=== PATIENT | female | born 1975 | race Caucasian/White ===

== ENCOUNTER 2019-01-03 20:36 | Emergency (ER) | payer SELFPAY ==
--- NOTE | 2019-01-03 20:58 | ERPHSYRPT ---
- History of Present Illness Time Seen by Provider: 01/03/19 20:57 Source: patient, family Exam Limitations: no limitations Patient Subjective Stated Complaint: pt states she was working on a cup and accidentally stabberherself in the lt palm with an exacto knife. states she has itp and has not been able to get it to stop bleeding Triage Nursing Assessment: pt alert and oriented, answers questions approp. pt ambulatory wikth steady gait noted. respirations nonlabored with lungs cta. approx 1cm laceration noted to middle palm with minimal bleeding noted. radial pulse and cap refill wnl. Physician History: 43 y/o right handed white female presents with a superficial laceration to palm of left hand. was bleeding a sig amt. pts tetanus is not utd. 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 Timing/Duration: today Quality: painful Severity: mild Location: hands (left) Possible Causes: other (exacto knife) Associated Symptoms: denies symptoms Allergies/Adverse Reactions: No Known Drug Allergies Allergy (Verified 01/03/19 20:48) Home Medications: Duloxetine HCl [Cymbalta] 30 mg PO HS 09/17/15 [History] Duloxetine HCl [Cymbalta] 60 mg PO HS 09/17/15 [History] Zolpidem Tartrate [Ambien] 10 mg PO HS 09/17/15 [History] Hx Tetanus, Diphtheria Vaccination/Date Given: No Hx Influenza Vaccination/Date Given: No Hx Pneumococcal Vaccination/Date Given: No Immunizations Up to Date: No - Review of Systems Constitutional: Fever Eyes: No Symptoms Ears, Nose, & Throat: No Symptoms Respiratory: Cough, No Dyspnea, No Stridor, No Wheezing Cardiac: No Symptoms Abdominal/Gastrointestinal: No Symptoms Genitourinary Symptoms: No Symptoms Musculoskeletal: No Symptoms Skin: Other (laceration left hand) Neurological: No Symptoms Psychological: No Symptoms Endocrine: No Symptoms Hematologic/Lymphatic: No Symptoms Immunological/Allergic: No Symptoms All Other Systems: Reviewed and Negative - Past Medical History Pertinent Past Medical History: Yes Neurological History: No Pertinent History ENT History: No Pertinent History Cardiac History: No Pertinent History Respiratory History: No Pertinent History Endocrine Medical History: No Pertinent History Musculoskeletal History: Fibromyalgia, Osteoarthritis GI Medical History: No Pertinent History History: No Pertinent History Psycho-Social History: Depression Other Medical History: LOW PLATLET COUNT. ITP - Past Surgical History Past Surgical History: Yes Neuro Surgical History: No Pertinent History Cardiac: No Pertinent History Respiratory: No Pertinent History Gastrointestinal: Cholecystectomy Genitourinary: No Pertinent History Musculoskeletal: No Pertinent History Female Surgical History: Hysterectomy - Social History Smoking Status: Current some day smoker How long have you smoked: 10 Exposure to second hand smoke: No Alcohol Use: None Drug Use: none Patient Lives Alone: No Significant Family History: no pertinent family hx - Female History Hx Last Menstrual Period: hyster 2016 Hx Now: No - Nursing Vital Signs Nursing Vital Signs: Initial Vital Signs Temperature 98.7 F 01/03/19 20:38 Pulse Rate 93 H 01/03/19 20:38 Respiratory Rate 18 01/03/19 20:38 Blood Pressure 138/78 01/03/19 20:38 O2 Sat by Pulse Oximetry 99 01/03/19 20:38 Pain Scale Pain Intensity 8 - Physical Exam General Appearance: no apparent distress, alert, anxiety Eye Exam: PERRL/EOMI, eyes nml inspection Ears, Nose, Throat Exam: normal ENT inspection, moist mucous membranes Neck Exam: normal inspection, non-tender, supple, full range of motion Respiratory Exam: airway intact, No chest tenderness, No respiratory distress Cardiovascular Exam: regular rate/rhythm Gastrointestinal/Abdomen Exam: No tenderness Pelvic Exam: not done Rectal Exam: not done Back Exam: normal inspection, normal range of motion, No CVA tenderness, No vertebral tenderness Extremity Exam: lacerations (0.5cm palmar aspect left hand, nv intact, tendon function intact), tenderness Neurologic Exam: alert, oriented x 3, cooperative, 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 Skin Exam: normal color, warm, laceration (see above) Lymphatic Exam: No adenopathy SpO2 Interpretation: normal SpO2: 99 O2 Delivery: Room Air Procedures - Laceration/Wound Repair Left Hand Wound Location: Left, hand (palmar aspect) Wound Length (cm): 0.5 Wound's Depth, Shape: superficial Wound Explored: clean Irrigated: Yes Hibiclens Prep: Yes Wound Repaired With: Steri-strips, Dermabond Progress: 01/03/19 22:50 pt sherrie well no complications - Course Nursing assessment & vital signs reviewed: Yes Ordered Tests: Active Orders 24 hr Category Date Time Status Wound Care STAT Care 01/03/19 22:17 Active Medication Summary Discontinued Medications Generic Name Dose Route Start Last Admin Trade Name Jeanette PRN Reason Stop Dose Admin Acetaminophen 650 mg 01/03/19 21:55 01/03/19 22:05 Tylenol 325 Mg PO 01/03/19 21:56 650 mg STAT STA Administration Acetaminophen Confirm 01/03/19 21:59 Tylenol 325 Mg Administered 01/03/19 22:00 Dose 650 mg .ROUTE .STK-MED ONE Diphtheria/Tetanus/Acell Pertussis 0.5 ml 01/03/19 21:56 01/03/19 22:05 Adacel Vial IM 01/03/19 21:57 0.5 ml .ONCE ONE Administration Diphtheria/Tetanus/Acell Pertussis Confirm 01/03/19 22:00 Adacel Vial Administered 01/03/19 22:01 Dose 0.5 ml IM .STK-MED ONE Ibuprofen 600 mg 01/03/19 21:55 01/03/19 22:10 Motrin 600 Mg PO 01/03/19 21:56 Not Given STAT ONE Ibuprofen Confirm 01/03/19 21:59 Motrin 600 Mg Administered 01/03/19 22:00 Dose 600 mg .ROUTE .STK-MED ONE - Progress Progress: improved Counseled pt/family regarding: diagnosis - Departure Departure Disposition: Home Clinical Impression: Laceration of left hand Condition: Stable Critical Care Time: No Referrals: JOVANI ESQUIVEL NP [Primary Care Provider] - Additional Instructions: keep dry for 24 hours. after 24 hours may wash daily. leave steristrips in place until they fall off. tylenol for pain
[2019-01-03] MEDS ORDERED: TYLENOL 325 MG PO STA (21:55)
[2019-01-03] MEDS ORDERED: MOTRIN 600 MG PO ONE (21:55)
[2019-01-03] MEDS ORDERED: Adacel Vial IM ONE ×2 (21:56→22:00)
[2019-01-03] MEDS ORDERED: MOTRIN 600 MG ONE (21:59)
[2019-01-03] MEDS ORDERED: TYLENOL 325 MG ONE (21:59)
[2019-01-03 22:58] VITALS: BP 116/81; PULSE 76; O2SAT 98
== END 2019-01-03 22:58 | disposition home or self-care (01) ==
LOC: ED 20:36
DX: S61.412A Laceration without foreign body of left hand, initial encounter (principal); W26.0XXA Contact with knife, initial encounter
CPT/HCPCS: 12001; 90471; 90715; 99283; A9270-GY

== ENCOUNTER 2020-04-22 16:09 | Emergency (ER) | payer OTHER ==
[2020-04-22 16:21] VITALS: BP 156/92; PULSE 92; O2SAT 98
--- NOTE | 2020-04-22 17:06 | ERPHSYRPT ---
- History of Present Illness Source: patient Patient Subjective Stated Complaint: Pt has TMJ and woke up this morning with her jaw out of place, pt has tried to manipulate it back with no success and is having extreme jaw pain to the left side, pt is unable to take NSAIDS due to having ITP Triage Nursing Assessment: Pt was brought to the ER by her , hypertensive, pain to left jaw, swollen and looks displaced, pain 9/10, no other issues at this time Physician History: 45 yo wf w chronic L TMJ pain states that her L TMJ dislocated this AM. Pain is 9/10 and worse w mandibular excursion. Trauma is denied. Timing/Duration: abrupt onset Severity: severe Prearrival Treatment: no prearrival treatment Modifying Factors: Worsens With: activity Associated Symptoms: jaw pain Allergies/Adverse Reactions: No Known Drug Allergies Allergy (Verified 04/22/20 16:21) Home Medications: Duloxetine HCl [Cymbalta] 30 mg PO HS 09/17/15 [History] Duloxetine HCl [Cymbalta] 60 mg PO HS 09/17/15 [History] Zolpidem Tartrate [Ambien] 10 mg PO HS 09/17/15 [History] Carbamazepine 200 mg [Tegretol 200 MG] 200 mg PO HS 04/22/20 [History] Hx Tetanus, Diphtheria Vaccination/Date Given: No Hx Influenza Vaccination/Date Given: No Hx Pneumococcal Vaccination/Date Given: No Travel Risk - International Travel Have you traveled outside of the country in past 3 weeks: No - Coronavirus Screening Are you exhibiting any of the following symptoms?: No Close contact with a COVID-19 positive Pt in past 14-21 Days: No - Review of Systems Constitutional: No Symptoms Eyes: No Symptoms Respiratory: No Symptoms Cardiac: No Symptoms Abdominal/Gastrointestinal: No Symptoms Genitourinary Symptoms: No Symptoms Musculoskeletal: No Symptoms Skin: No Symptoms Neurological: No Symptoms Psychological: No Symptoms Endocrine: No Symptoms Hematologic/Lymphatic: No Symptoms Immunological/Allergic: No Symptoms - Past Medical History Pertinent Past Medical History: Yes Neurological History: No Pertinent History ENT History: No Pertinent History Cardiac History: No Pertinent History Respiratory History: No Pertinent History Endocrine Medical History: No Pertinent History Musculoskeletal History: Fibromyalgia, Osteoarthritis GI Medical History: No Pertinent History History: No Pertinent History Psycho-Social History: Depression Other Medical History: LOW PLATLET COUNT. ITP - Past Surgical History Past Surgical History: Yes Neuro Surgical History: No Pertinent History Cardiac: No Pertinent History Respiratory: No Pertinent History Gastrointestinal: Cholecystectomy Genitourinary: No Pertinent History Musculoskeletal: No Pertinent History Female Surgical History: Hysterectomy - Social History Smoking Status: Former smoker How long have you smoked: 10 Exposure to second hand smoke: No Alcohol Use: None Drug Use: none Patient Lives Alone: No Significant Family History: no pertinent family hx - Female History Hx Now: No (hysterectomy) - Nursing Vital Signs Nursing Vital Signs: Initial Vital Signs Temperature 97.9 F 04/22/20 16:14 Pulse Rate 92 H 04/22/20 16:14 Blood Pressure 156/92 04/22/20 16:14 O2 Sat by Pulse Oximetry 98 04/22/20 16:14 Pain Scale Pain Intensity 9 - Physical Exam Eye Exam: bilateral eye: normal inspection, PERRL, EOMI Ear Exam: bilateral ear: auricle normal, canal normal, TM normal Nasal Exam: normal inspection Throat Exam: pharynx normal, trismus (L TMJ ttp wo obvious dislocation), No dental tenderness Neck Exam: normal inspection, non-tender, supple, full range of motion, trachea midline, No JVD, No limited range of motion, No lymphadenopathy (R), No lymphadenopathy (L), No stiff neck Cardiovascular/Respiratory Exam: normal breath sounds, regular rate/rhythm, heart sounds normal, no respiratory distress Neurologic Exam: alert, oriented x 3, cooperative, 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 tested, normal mood/affect, nml cerebellar function, nml station & gait, sensation nml, No motor deficits, No sensory deficit Skin Exam: normal color, warm, dry, No rash SpO2 Interpretation: normal SpO2: 98 O2 Delivery: Room Air - Course Nursing assessment & vital signs reviewed: Yes - CT Exams Maxillofacial Bones CT Interpretation: Tele-radiologist Report (Nothing acute) Ordered Tests: Active Orders 24 hr Category Date Time Status FACIAL BONES WO CONTRAST [CT] Stat Exams 04/22/20 16:37 Completed Medication Summary Discontinued Medications Generic Name Dose Route Start Last Admin Trade Name Freq PRN Reason Stop Dose Admin Orphenadrine Citrate 60 mg 04/22/20 17:09 04/22/20 17:12 Norflex 60 Mg/2 Ml IM 04/22/20 17:10 60 mg STAT ONE Administration Orphenadrine Citrate Confirm 04/22/20 17:11 Norflex 60 Mg/2 Ml Administered 04/22/20 17:12 Dose 60 mg .ROUTE .STK-MED ONE - Progress Progress: improved Progress Note: 04/22/20 17:11 60mg IM Norflex Counseled pt/family regarding: need for follow-up, rad results - Departure Departure Disposition: Home Clinical Impression: TMJ arthralgia Condition: Stable Critical Care Time: No Referrals: JOVANI ESQUIVEL NP [Primary Care Provider] - Instructions: Temporomandibular Joint (TMJ) Disorders (DC) Additional Instructions: Follow up with your dentist in AM Norflex as needed for pain Prescriptions: Tramadol HCl/Acetaminophen [Ultracet Tablet] 1 each PO Q6H PRN PRN #8 tablet PRN Reason: Pain Orphenadrine Citrate 100 mg [Norflex 100 MG Tablet] 100 mg PO BIDPRN PRN #10 tab PRN Reason: Pain
[2020-04-22] MEDS ORDERED: Norflex 60 MG/2 ML IM ONE (17:09)
[2020-04-22] MEDS ORDERED: Norflex 60 MG/2 ML ONE (17:11)
--- NOTE | 2020-04-22 18:09 | XRAY ---
Indication: Left TMJ pain. Patient states left TMJ "popped out." Multiple contiguous axial images obtained through the facial bones. Sagittal and coronal reformatted images obtained. Comparison: None A few bilateral dental amalgams produces beam artifact. TMJ are bilaterally symmetric. No acute fracture, suspicious bony lesions, or radiopaque foreign body. Orbits including roof, ward, and floors are intact. Paranasal sinuses and nasal passages are clear. Minimal nasal septal deviation to the right. Incidental left middle turbinate roxann bullosa. Remaining visualized noncontrasted soft tissues including base of the brain unremarkable. Impression: 1. Incidental minimal nasal septal deviation and left middle turbinate roxann bullosa. 2. Remaining CT facial bones negative. Comment: Preliminary interpretation was made by [facility]. No critical discrepancy.
== END 2020-04-22 17:25 | disposition home or self-care (01) ==
LOC: ED 16:09
DX: M26.622 Arthralgia of left temporomandibular joint (principal); I10 Essential (primary) hypertension; Z79.899 Other long term (current) drug therapy
CPT/HCPCS: 70486; 96372; 99284; J2360

== ENCOUNTER 2020-05-17 15:43 | Emergency (ER) | payer OTHER ==
[2020-05-17] MEDS ORDERED: BABY ASPIRIN 81 MG CHEW PO ONE (15:52)
--- NOTE | 2020-05-17 15:52 | ERPHSYRPT ---
- History of Present Illness Time Seen by Provider: 05/17/20 15:52 Historian: patient Exam Limitations: no limitations Physician History: This is a 45-year-old white female who has a history of chronic ITP and a history of hypokalemia in the past. She presents with chest pain that was sudden in onset in the left anterior upper chest which radiated through to her back as well as the left shoulder and upper arm. Patient describes as intermittent dull ache and sharpness. She is never had anything like this in the past. She has no cardiac history. Patient has no clotting disorders. Patient is not short of breath. The pain began about 130 this afternoon. Patie nt arrives with the chest pain nearly completely resolved. Quality: aching, sharpness Location: other (Left anterior chest) Severity of Pain-Max: mild Severity of Pain-Current: none Prior Chest Pain/Cardiac Workup: no prior chest pain Nitro Today/Relief: no nitro taken today Aspirin Treatment Today: no aspirin today Allergies/Adverse Reactions: No Known Drug Allergies Allergy (Verified 05/17/20 15:46) Home Medications: Duloxetine HCl [Cymbalta] 30 mg PO HS 09/17/15 [History] Duloxetine HCl [Cymbalta] 60 mg PO HS 09/17/15 [History] Zolpidem Tartrate [Ambien] 10 mg PO HS 09/17/15 [History] Hx Tetanus, Diphtheria Vaccination/Date Given: No Hx Influenza Vaccination/Date Given: No Hx Pneumococcal Vaccination/Date Given: No Travel Risk - International Travel Have you traveled outside of the country in past 3 weeks: No - Coronavirus Screening Are you exhibiting any of the following symptoms?: No Close contact with a COVID-19 positive Pt in past 14-21 Days: No - Review of Systems Constitutional: No Symptoms Eyes: No Symptoms Ears, Nose, & Throat: No Symptoms Respiratory: No Symptoms Cardiac: No Symptoms Abdominal/Gastrointestinal: No Symptoms Genitourinary Symptoms: No Symptoms Musculoskeletal: No Symptoms Skin: No Symptoms Neurological: No Symptoms Psychological: No Symptoms Endocrine: No Symptoms Hematologic/Lymphatic: No Symptoms Immunological/Allergic: No Symptoms All Other Systems: Reviewed and Negative - Past Medical History Pertinent Past Medical History: Yes Neurological History: No Pertinent History ENT History: No Pertinent History Cardiac History: No Pertinent History Respiratory History: No Pertinent History Endocrine Medical History: No Pertinent History Musculoskeletal History: Fibromyalgia, Osteoarthritis GI Medical History: No Pertinent History History: No Pertinent History Psycho-Social History: Depression Female Reproductive Disorders: No Pertinent History Other Medical History: LOW PLATLET COUNT. ITP - Past Surgical History Past Surgical History: Yes Neuro Surgical History: No Pertinent History Cardiac: No Pertinent History Respiratory: No Pertinent History Gastrointestinal: Cholecystectomy Genitourinary: No Pertinent History Musculoskeletal: No Pertinent History Female Surgical History: Hysterectomy - Social History Smoking Status: Former smoker How long have you smoked: 10 Exposure to second hand smoke: No Alcohol Use: None Drug Use: none Patient Lives Alone: No Significant Family History: no pertinent family hx - Nursing Vital Signs Nursing Vital Signs: Initial Vital Signs Temperature 98.2 F 05/17/20 15:48 Pulse Rate 102 H 05/17/20 15:48 Respiratory Rate 18 05/17/20 15:48 Blood Pressure 139/90 05/17/20 15:48 O2 Sat by Pulse Oximetry 99 05/17/20 15:48 Pain Scale Pain Intensity 5 - Physical Exam General Appearance: no apparent distress, alert, anxiety, obese Eye Exam: PERRL/EOMI, eyes nml inspection Ears, Nose, Throat Exam: normal ENT inspection, moist mucous membranes Neck Exam: normal inspection, non-tender, supple, full range of motion Respiratory Exam: normal breath sounds, lungs clear, airway intact, No chest tenderness, No respiratory distress Cardiovascular Exam: regular rate/rhythm, normal heart sounds, normal peripheral pulses Gastrointestinal/Abdomen Exam: soft, normal bowel sounds, No tenderness Pelvic Exam: not done Rectal Exam: not done Back Exam: normal inspection, normal range of motion, CVA tenderness Extremity Exam: normal inspection, pelvis stable, calf tenderness Neurologic Exam: alert, oriented x 3, cooperative, 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 Comparison EKG dated 09/14/2015 shows no significant change.) Ordered Tests: Active Orders 24 hr Category Date Time Status Exploitation Analyst STAT Care 05/17/20 15:53 Active EKG-ER Only STAT Care 05/17/20 15:52 Active IV Insertion STAT Care 05/17/20 15:52 Active Pulse Oximetry (ED) STAT Care 05/17/20 15:52 Active CHEST 1 VIEW (PORTABLE) Stat Exams 05/17/20 15:53 Completed CBC W DIFF Stat Lab 05/17/20 16:19 Completed CMP Stat Lab 05/17/20 16:19 Completed D-DIMER QUANTITATIVE Stat Lab 05/17/20 16:19 Completed NT PRO BNP Stat Lab 05/17/20 16:19 Completed PROTIME WITH INR Stat Lab 05/17/20 16:19 Completed TROPONIN Q3H Lab 05/17/20 16:19 Completed TROPONIN Q3H Lab 05/17/20 19:00 Ordered TROPONIN Q3H Lab 05/17/20 22:00 Ordered TROPONIN Q3H Lab 05/18/20 01:00 Ordered TROPONIN Q3H Lab 05/18/20 04:00 Ordered Medication Summary Discontinued Medications Generic Name Dose Route Start Last Admin Trade Name Freq PRN Reason Stop Dose Admin Aspirin 324 mg 05/17/20 15:52 05/17/20 15:56 Baby Aspirin 81 Mg Chew PO 05/17/20 15:53 324 mg STAT ONE Administration Aspirin Confirm 05/17/20 16:03 Baby Aspirin 81 Mg Chew Administered 05/17/20 16:04 Dose 324 mg .ROUTE .STK-MED ONE Lab/Rad Data: Laboratory Result Diagrams 05/17/20 16:19 05/17/20 16:19 Laboratory Results 05/17/20 05/17/20 05/17/20 Range/Units 16:19 16:19 16:19 WBC (4.0-10.5) K/mm3 RBC (4.1-5.4) M/mm3 Hgb (12.0-16.0) gm/dl Hct (35-47) % MCV (78-100) fl MCH (26-32) pg MCHC (32-36) g/dl RDW (11.5-14.0) % Plt Count (150-450) K/mm3 MPV (7.5-11.0) fl Gran % (36.0-66.0) % Eos # (Auto) (0-0.5) Absolute Lymphs (auto) (1.0-4.6) Absolute Monos (auto) (0.0-1.3) Lymphocytes % (24.0-44.0) % Monocytes % (0.0-12.0) % Eosinophils % (0.00-5.0) % Basophils % (0.0-0.4) % Absolute Granulocytes (1.4-6.9) Basophils # (0-0.4) PT 11.7 (9.95-12.35) SECONDS INR 1.04 (0.8-3.0) D-Dimer < 215 L (215-500) ng/mL Sodium 138 (137-145) mmol/L Potassium 3.6 (3.5-5.1) mmol/L Chloride 104 (98-107) mmol/L Carbon Dioxide 27 (22-30) mmol/L Anion Gap 10.1 (5-15) MEQ/L BUN 10 (7-17) mg/dL Creatinine 0.54 (0.52-1.04) mg/dL Estimated GFR > 60.0 ML/MIN Glucose 168 H (74-106) mg/dL Calcium 9.3 (8.4-10.2) mg/dL Total Bilirubin 0.20 (0.2-1.3) mg/dL AST 28 (14-36) U/L ALT 21 (0-35) U/L Alkaline Phosphatase 56 (38-126) U/L Troponin I < 0.012 (0.000-0.034) ng/mL NT-Pro-B Natriuret Pep < 11.1 (0-450) pg/mL Serum Total Protein 7.0 (6.3-8.2) g/dL Albumin 4.0 (3.5-5.0) g/dL Slides for Path Review 05/17/20 Range/Units 16:19 WBC 6.3 (4.0-10.5) K/mm3 RBC 4.36 (4.1-5.4) M/mm3 Hgb 12.1 (12.0-16.0) gm/dl Hct 38.4 (35-47) % MCV 88.1 (78-100) fl MCH 27.8 (26-32) pg MCHC 31.5 L (32-36) g/dl RDW 13.2 (11.5-14.0) % Plt Count 76 L (150-450) K/mm3 MPV 13.2 H (7.5-11.0) fl Gran % 64.4 (36.0-66.0) % Eos # (Auto) 0.11 (0-0.5) Absolute Lymphs (auto) 1.79 (1.0-4.6) Absolute Monos (auto) 0.33 (0.0-1.3) Lymphocytes % 28.4 (24.0-44.0) % Monocytes % 5.2 (0.0-12.0) % Eosinophils % 1.7 (0.00-5.0) % Basophils % 0.3 (0.0-0.4) % Absolute Granulocytes 4.06 (1.4-6.9) Basophils # 0.02 (0-0.4) PT (9.95-12.35) SECONDS INR (0.8-3.0) D-Dimer (215-500) ng/mL Sodium (137-145) mmol/L Potassium (3.5-5.1) mmol/L Chloride (98-107) mmol/L Carbon Dioxide (22-30) mmol/L Anion Gap (5-15) MEQ/L BUN (7-17) mg/dL Creatinine (0.52-1.04) mg/dL Estimated GFR ML/MIN Glucose (74-106) mg/dL Calcium (8.4-10.2) mg/dL Total Bilirubin (0.2-1.3) mg/dL AST (14-36) U/L ALT (0-35) U/L Alkaline Phosphatase (38-126) U/L Troponin I (0.000-0.034) ng/mL NT-Pro-B Natriuret Pep (0-450) pg/mL Serum Total Protein (6.3-8.2) g/dL Albumin (3.5-5.0) g/dL Slides for Path Review YES - Progress Progress: improved, re-examined Air Movement: good Progress Note: 05/17/20 17:13 Chest x-ray shows no acute cardiopulmonary process Patient has no chest pain. She has no coronary artery disease history. Her D- dimer is normal her electrolytes are also within normal limits. We will discharge her to home with instruction to follow-up with her primary care physician tomorrow. Blood Culture(s) Obtained: No Antibiotics given: No Counseled pt/family regarding: lab results, diagnosis, need for follow-up, rad results - Departure Departure Disposition: Home Clinical Impression: Chest pain Condition: Stable Critical Care Time: No Referrals: JOVANI ESQUIVEL NP [Primary Care Provider] - Additional Instructions: Take your medications as prescribed. Add a full baby aspirin daily. Contact your primary care physician office tomorrow to make arrangements for follow-up appointment. Return to the emergency department if your symptoms recur.
[2020-05-17] MEDS ORDERED: BABY ASPIRIN 81 MG CHEW ONE (16:03)
[2020-05-17 16:22] LABS: Absolute Neutrophil Ct (ANC) 4.06 (1.4-6.9); BASOPHIL % 0.3 % (0.0-0.4); Basophil (Absolute #) 0.02 (0-0.4); Eosinophil % 1.7 % (0.00-5.0); Eosinophil (Absolute #) 0.11 (0-0.5); Hematocrit 38.4 % (35-47); Hemoglobin 12.1 gm/dl (12.0-16.0); Lymphocyte (Absolute #) 1.79 (1.0-4.6); Lymphocytes % 28.4 % (24.0-44.0); Mean Cell Volume 88.1 fl (78-100); Mean Corpuscular Hemoglobin 27.8 pg (26-32); Mean Corpuscular Hgb Concent. 31.5 g/dl (32-36); Mean Platelet Volume 13.2 fl (7.5-11.0); Monocyte (Absolute #) 0.33 (0.0-1.3); Monocytes % 5.2 % (0.0-12.0); Neutrophil % 64.4 % (36.0-66.0); Platelet Count 76 K/mm3 (150-450); Red Blood Count 4.36 M/mm3 (4.1-5.4); Red Cell Distribution Width 13.2 % (11.5-14.0); White Blood Count 6.3 K/mm3 (4.0-10.5)
--- NOTE | 2020-05-17 16:22 | XRAY ---
Indication: Chest pain. Comparison: May 05, 2019. Portable chest again demonstrates normal heart, lungs, and bony thorax.
[2020-05-17 16:24] LABS: INR 1.04 (0.8-3.0); PROTIME 11.7 SECONDS (9.95-12.35)
[2020-05-17 16:36] LABS: D-DIMER QUANTITATIVE < 215 ng/mL (215-500)
[2020-05-17 16:38] LABS: ALKALINE PHOSPHATASE 56 U/L (38-126); ANION GAP 10.1 MEQ/L (5-15); BLOOD UREA NITROGEN 10 mg/dL (7-17); CHLORIDE 104 mmol/L (98-107); Calcium 9.3 mg/dL (8.4-10.2); Carbon Dioxide 27 mmol/L (22-30); Creatinine 1 0.54 mg/dL (0.52-1.04); EST GLOMERULAR FILTRATION RATE > 60.0 ML/MIN; Glucose 168 mg/dL (74-106); NT PRO BNP < 11.1 pg/mL (0-450); Potassium 3.6 mmol/L (3.5-5.1); SGOT/AST 28 U/L (14-36); SGPT/ALT 21 U/L (0-35); SODIUM 138 mmol/L (137-145)
[2020-05-17 17:01] LABS: Slide Review 1 YES
[2020-05-17 17:21] VITALS: BP 111/76; PULSE 98; O2SAT 97
== END 2020-05-17 17:27 | disposition home or self-care (01) ==
LOC: ED 15:43
DX: R07.9 Chest pain, unspecified (principal); Z79.899 Other long term (current) drug therapy
CPT/HCPCS: 36000; 36415; 71045; 80053; 83880; 84484; 85025; 85379; 85610; 93005; 93041; 94760; 99284; A9270-GY

== ENCOUNTER 2021-04-17 09:38 | Day surgery (SDC) | payer BC, OTHER ==
[2021-04-17] MEDS ORDERED: BUPIVACAINE 0.5% VIAL IJ ONE (09:39)
[2021-04-17] MEDS ORDERED: Depo-Medrol 40 MG/ML IM ONE (09:39)
[2021-04-17] MEDS ORDERED: DIPRIVAN 200 MG/20 ML IV ONE (10:45)
--- NOTE | 2021-04-17 11:54 | XRAY ---
Indication: Right shoulder injection. Intraoperative fluoroscopy provided for 13 seconds. Single digital spot image submitted for interpretation demonstrates needle tip projecting over the right glenohumeral joint superiorly. Small amount of contrast injected for needle tip placement. Correlate with intraoperative findings/report.
--- NOTE | 2021-04-17 11:54 | XRAY ---
Indication: Left shoulder injection. Intraoperative fluoroscopy provided for 16 seconds. Single digital spot image submitted for interpretation demonstrates needle tip projecting over the left glenohumeral joint superiorly. Small amount of contrast injected for needle tip placement. Correlate with intraoperative findings/report.
--- NOTE | 2021-04-17 11:58 | XRAY ---
16 seconds fluoroscopy time in surgery for injection of the left shoulder.
--- NOTE | 2021-04-17 11:58 | XRAY ---
13 seconds fluoroscopy time in surgery for intra-articular injection of the right shoulder.
[2021-04-17] MEDS ORDERED: Lactated Ringers 1,000 ML IV ONE (12:03)
== END 2021-04-17 11:15 | disposition home or self-care (01) ==
LOC: SDC-PAIN 09:38
PROVIDERS: ATTEND Psychiatry & Neurology Pain Medicine
DX: M19.012 Primary osteoarthritis, left shoulder (principal); M19.011 Primary osteoarthritis, right shoulder; Z79.899 Other long term (current) drug therapy
CPT/HCPCS: 20610; 73030; 77002; J1030; J2704; Q9966

== ENCOUNTER 2022-04-25 11:41 | Emergency (ER) | payer OTHER ==
[2022-04-25] MEDS ORDERED: NORCO 5/325 MG PO ONE (12:24)
[2022-04-25 12:50] LABS: Appearance CLEAR (CLEAR); Bilirubin NEGATIVE (NEGATIVE); Dipstick done @ ? MAIN LAB; Glucose NEGATIVE (NEGATIVE); Ketones NEGATIVE (NEGATIVE); Nitrite NEGATIVE (NEGATIVE); Ph 5.5 (5-6); Protein,Urine Dip NEGATIVE (Negative); RBC NEGATIVE Ery/ul (0-5); Urobilinogen 0.2 mg/dL (0-1)
[2022-04-25 12:51] LABS: Mucus SLIGHT /HPF (NEGATIVE); Urine Cultured Indicated? NO
--- NOTE | 2022-04-25 12:51 | XRAY ---
Indication: Left head injury following fall 5 days ago. Nausea, diarrhea, lumbar, and suprapubic pain. Multiple contiguous axial images obtained through the cervical spine. Sagittal and coronal reformatted images obtained. Comparison: None Axial images negative for acute fracture, suspicious bony lesions, or spinal canal stenosis. Facets are symmetric. Sagittal and coronal reformatted images demonstrates normal alignment with vertebral body heights/disc spaces maintained. No acute compression fracture, subluxation, or jumped facet. Normal appearing craniocervical junction. Visualized noncontrasted soft tissues including lung apices are unremarkable. Impression: Normal CT cervical spine.
--- NOTE | 2022-04-25 12:51 | XRAY ---
Indication: Left head injury following fall 5 days ago. Nausea, diarrhea, lumbar, and suprapubic pain. Multiple contiguous axial images obtained through the head without contrast. Comparison: None Normal appearing brain parenchyma, ventricles, and bony calvarium. Visualized paranasal sinuses and mastoid air cells are clear. Impression: Normal CT head without contrast exam.
--- NOTE | 2022-04-25 12:55 | XRAY ---
Indication: Left head injury following fall 5 days ago. Nausea, diarrhea, lumbar, and suprapubic pain. Multiple contiguous axial images obtained through the abdomen and pelvis without contrast. Comparison: June 15, 2012 Lung bases are clear. Heart not enlarged. Noncontrasted stomach and bowel loops nonobstructed with normal appendix. Interval hysterectomy. Again cholecystectomy. No free fluid/air. Remaining liver, pancreas, spleen, adrenal glands, kidneys, ureters, bladder, and aorta are unremarkable for noncontrast exam. Osseous structures intact again with mild L5-S1 degenerative changes. No ventral or inguinal hernias. Impression: Stable L5-S1 degenerative changes. Remaining CT abdomen/pelvis without contrast exam is again normal.
[2022-04-25] MEDS ORDERED: NORCO 5/325 MG ONE (13:01)
[2022-04-25] MEDS ORDERED: ZOFRAN ODT 4 MG PO ONE (13:43)
[2022-04-25 13:45] LABS: INFLUENZA A NEGATIVE (NEGATIVE); INFLUENZA B NEGATIVE (NEGATIVE); RESPIRATORY SYNCTIAL VIRUS NEGATIVE (Negative); SARS-CoV-2 Xpert Express NEGATIVE (NEGATIVE)
--- NOTE | 2022-04-25 13:45 | ERPHSYRPT ---
- History of Present Illness Source: patient Exam Limitations: no limitations Patient Subjective Stated Complaint: Pt reports she fell during the night on 04/19/22, landing on back of head breaking vanity stool, no LOC. Since the fall she has headache and back pain, nausea without vomiting, and diarrhea. Triage Nursing Assessment: Pt ambulated to ED cot without difficult. Alert and oriented x3. No apparent respiratory distress. No obvious deformities. Top of head is tender with palpitation. 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 Physician History: 47 yo wf tripped over her dog in the bedroom on 04/19/22 subsequently hitting her head. She was dazed but denies LOC. Pt has a mild global headache which she rates a 4/10. She also complains of cervical pain/lumbar pain/supra-pubic pain/nausea/diarrhea. Pt denies fever/cough/chest pain/dyspnea. Occurred: other (04/19/22) Reason for Fall: tripped (Tripped over dog) Injuries/Pain Location: head, neck, back Loss of Consciousness: no loss of consciousness, dazed Quality: aching Severity of Pain-Max: moderate Severity of Pain-Current: mild Modifying Factors: Improves With: movement Associated Symptoms (Fall): abdominal pain, nausea Allergies/Adverse Reactions: No Known Drug Allergies Allergy (Verified 04/25/22 11:49) Home Medications: Duloxetine HCl [Cymbalta] 30 mg PO HS 09/17/15 [History] Duloxetine HCl [Cymbalta] 60 mg PO HS 09/17/15 [History] Zolpidem Tartrate [Ambien] 10 mg PO HS 09/17/15 [History] Atorvastatin Calcium [Lipitor 20MG Tablet] 20 mg PO DAILY 04/25/22 [History] Hx Tetanus, Diphtheria Vaccination/Date Given: No Hx Influenza Vaccination/Date Given: Yes Hx Pneumococcal Vaccination/Date Given: No Travel Risk - International Travel Have you traveled outside of the country in past 3 weeks: No - Coronavirus Screening Are you exhibiting any of the following symptoms?: No Close contact with a COVID-19 positive Pt in past 14-21 Days: No - Vaccine Status Have you recieved a Covid-19 vaccination: Yes 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: [email or web address] - Vaccination Dates Comment: [employer] and Steve first, [place] second - Review of Systems Constitutional: No Symptoms Eyes: No Symptoms Ears, Nose, & Throat: No Symptoms Respiratory: No Symptoms Cardiac: No Symptoms Abdominal/Gastrointestinal: No Symptoms, Nausea Genitourinary Symptoms: No Symptoms Musculoskeletal: No Symptoms, Back Pain, Neck Pain Skin: No Symptoms Neurological: No Symptoms, Headache Psychological: No Symptoms Endocrine: No Symptoms Hematologic/Lymphatic: No Symptoms Immunological/Allergic: No Symptoms - Past Medical History Pertinent Past Medical History: Yes Neurological History: No Pertinent History ENT History: No Pertinent History Cardiac History: No Pertinent History Respiratory History: No Pertinent History Endocrine Medical History: No Pertinent History Musculoskeletal History: Fibromyalgia, Osteoarthritis GI Medical History: Irritable Bowel History: No Pertinent History Psycho-Social History: Depression Female Reproductive Disorders: No Pertinent History Other Medical History: LOW PLATELETS SO PT CANT TAKE NSAIDS - ITP, fibromyalgia - Past Surgical History Past Surgical History: Yes Neuro Surgical History: No Pertinent History Cardiac: No Pertinent History Respiratory: No Pertinent History Gastrointestinal: Cholecystectomy Genitourinary: No Pertinent History Musculoskeletal: No Pertinent History Female Surgical History: Hysterectomy Other Surgical History: plantar facitis right foot, carpal tunnel right hand - Social History Smoking Status: Never smoker How long have you smoked: 10 Exposure to second hand smoke: No Alcohol Use: None Drug Use: none Patient Lives Alone: No Significant Family History: no pertinent family hx - Female History Hx Last Menstrual Period: 2014 Hx Now: No - Nursing Vital Signs Nursing Vital Signs: Initial Vital Signs Temperature 96.8 F 04/25/22 11:51 Pulse Rate 103 H 04/25/22 11:51 Respiratory Rate 17 04/25/22 11:51 Blood Pressure 131/89 04/25/22 11:51 O2 Sat by Pulse Oximetry 97 04/25/22 11:51 Pain Scale Pain Intensity 4 Mildly hypertensive/tachy - Rick Coma Score Best Eye Response (Rick): (4) open spontaneously Best Verbal Response (Frost): (5) oriented Best Motor Response (Frost): (6) obeys commands Rick Total: 15 - Physical Exam General Appearance: no apparent distress Head Injury: no evidence of injury (Complains of persistent headache) Eye Exam: PERRL/EOMI, eyes nml inspection ENT Exam: airway nml, evidence of ENT injury, No clear fluid (ears), No clear fluid (nose), No midface instability Neck Exam: trachea midline, tenderness (C-spine mildly TTP), No meningismus, No Brudzinski, No Kernig's Respiratory/Chest Exam: No chest tenderness Cardiovascular Exam: normal heart sounds, regular rate/rhythm, No murmur Gastrointestinal Exam: soft, normal bowel sounds, tenderness (Mild supra-pubic TTP) Back Exam: CVA tenderness (Mild R-L CVA TTP), vertebral tenderness (Mild L-spine TTP) Extremity Exam: normal inspection, normal range of motion, capillary refill <3 sec, pelvis stable, No deformities Peripheral Pulses: carotid (R): 2+, carotid (L): 2+ Neurologic Exam: alert, oriented x 3, 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, 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 as tested, normal mood/affect, nml cerebellar function, nml station & gait, sensation nml Skin Exam: normal color, warm, dry SpO2 Interpretation: normal SpO2: 98 O2 Delivery: Room Air - Course Nursing assessment & vital signs reviewed: Yes - CT Exams Head CT Interpretation: Discussed w/radiologist (CT head neg) Cervical Spine CT Interpretation: Discussed w/radiologist (CT C-spine neg) Abdomen/Pelvis CT Interpretation: Discussed w/radiologist (Nothing acute) Ordered Tests: Active Orders 24 hr Category Date Time Status ABDOMEN AND PELVIS W/0 CONTRAS [CT] Stat Exams 04/25/22 12:22 Completed CERVICAL SPINE WO CONTRAST [CT] Stat Exams 04/25/22 12:21 Completed HEAD WITHOUT CONTRAST [CT] Stat Exams 04/25/22 12:21 Completed UA W/RFX CULTURE Stat Lab 04/25/22 12:36 Completed Medication Summary Discontinued Medications Generic Name Dose Route Start Last Admin Trade Name Jeanette PRN Reason Stop Dose Admin Hydrocodone Bitart/Acetaminophen 1 tab 04/25/22 12:24 04/25/22 13:01 Hydrocodone/Apap 5/325 1 Tab Tablet PO 04/25/22 12:25 1 tab STAT ONE Administration Hydrocodone Bitart/Acetaminophen Confirm 04/25/22 13:01 Hydrocodone/Apap 5/325 1 Tab Tablet Administered 04/25/22 13:02 Dose 1 tab .ROUTE .STK-MED ONE Ondansetron HCl 4 mg 04/25/22 13:43 04/25/22 13:46 Zofran 4 Mg/Udtablet Orally Disintegrating PO 04/25/22 13:44 4 mg STAT ONE Administration Ondansetron HCl Confirm 04/25/22 13:46 Zofran 4 Mg/Udtablet Orally Disintegrating Administered 04/25/22 13:47 Dose 4 mg .ROUTE .STK-MED ONE Lab/Rad Data: Laboratory Results 04/25/22 04/25/22 Range/Units Unknown 12:36 Urinalys Dipstick Clnc MAIN LAB Urine Color YELLOW (YELLOW) Urine Appearance CLEAR (CLEAR) Urine pH 5.5 (5-6) Ur Specific [place] 1.010 (1.005-1.025) POC Urine Protein Conf NEGATIVE (Negative) Urine Ketones NEGATIVE (NEGATIVE) Urine Nitrite NEGATIVE (NEGATIVE) Urine Bilirubin NEGATIVE (NEGATIVE) Urine Urobilinogen 0.2 (0-1) mg/dL Urine Leukocytes NEGATIVE (NEGATIVE) Urine WBC (Auto) 3-5 A (0-5) /HPF Urine RBC (Auto) NONE (0-2) /HPF U Epithel Cells (Auto) NONE (FEW) /HPF Urine Bacteria (Auto) NONE (NEGATIVE) /HPF Urine RBC NEGATIVE (0-5) Gurjit/ul Urine Mucus (Auto) SLIGHT A (NEGATIVE) /HPF Ur Culture Indicated? NO Urine Glucose NEGATIVE (NEGATIVE) mg/dL Influenza Type A Ag NEGATIVE (NEGATIVE) Influenza Type B Ag NEGATIVE (NEGATIVE) RSV (PCR) NEGATIVE (Negative) SARS-CoV-2 (PCR) NEGATIVE (NEGATIVE) - Progress Progress: improved Progress Note: 04/25/22 14:13 Norco5 po x1 w improvement in pain Zofran 4mg odt w improvement in nausea Pt most likely has sequela of minor closed head injury. She has no focal weakness or abnormality on CT. Will discharge in stable condition. Counseled pt/family regarding: lab results, diagnosis, need for follow-up, rad results - Departure Departure Disposition: Home Clinical Impression: Minor closed head injury, Cervical strain, Lumbar pain Condition: Stable Critical Care Time: No Referrals: JOVANI ESQUIVEL NP [Primary Care Provider] - Follow up/PCP as directed Instructions: Concussion, Adult (DC), Closed Head Injury (DC), Cervical Muscle Strain (DC) Additional Instructions: Tylenol for pain Follow up with your family MD Jovel for nausea and vomiting Avoid any activity where head trauma could occur for 2-4 weeks Return to ER for focal weakness/increasing pain Heat to neck and back as needed Prescriptions: Ondansetron ODT 4 MG [Zofran Odt 4 mg] 4 mg PO Q6HPRN PRN #10 tab PRN Reason: Nausea
[2022-04-25] MEDS ORDERED: ZOFRAN ODT 4 MG ONE (13:46)
[2022-04-25 14:22] VITALS: BP 130/74; PULSE 84
[2022-04-25 15:48] VITALS: O2SAT 98
== END 2022-04-25 14:29 | disposition home or self-care (01) ==
LOC: ED 11:41
DX: S09.90XA Unspecified injury of head, initial encounter (principal); S16.1XXA Strain of muscle, fascia and tendon at neck level, initial encounter; W01.0XXA Fall on same level from slipping, tripping and stumbling without subsequent striking against object, initial encounter; Y92.003 Bedroom of unspecified non-institutional (private) residence as the place of occurrence of the external cause; M54.50 Low back pain, unspecified; Z79.899 Other long term (current) drug therapy
CPT/HCPCS: 0241U; 70450; 72125; 74176; 81015; 99283; Q0162; A9270-GY